=== PATIENT | female | born 1980 | race Caucasian/White ===

== ENCOUNTER 2022-08-16 18:30 | Emergency (ER) | payer OTHER, SELFPAY ==
[2022-08-16 18:38] VITALS: BP 159/94; PULSE 64; RESP 20; TEMP 36.1; O2SAT 99
--- NOTE | 2022-08-16 18:54 | ED.HA ---
HPI - Headache General Chief Complaint: Headache/Migraine Stated Complaint: Migraine Time Seen by Provider: 08/16/22 18:39 History of Present Illness HPI Narrative: This 42-year-old female is visiting from [place]. She states that she has had upper respiratory and sinus symptoms for the past week or so. Today she developed a migraine-type headache with sensitivity to light and some nausea and vomiting. She states that she has a history of migraines that were more frequent in the more distant past. She does not report any back pain or neck pain. She has not had any fevers. She does not display any neurologic deficits. Related Data Allergies Allergy/AdvReac Type Severity Reaction Status Date / Time No Known Drug Allergies Allergy Verified 08/16/22 18:38 Review of Systems Status of ROS: Reports: 10 or more systems reviewed and unremarkable except as noted in History and below Narrative: Constitutional: No fevers, no weight gain or loss. Eyes: No discharge. No vision changes. HENT: No congestion, no sore throat, no ear pain. Cardiovascular: No chest pain, no palpitations. Respiratory: No shortness of breath, no wheezes, no cough. Gastrointestinal: No abdominal pain, no diarrhea. Nausea with some vomiting related to headache. Genitourinary: No dysuria, no hematuria. Musculoskeletal: Normal range of motion. Skin: No rashes, no pruritis. Neurological: No dizziness, weakness, sensory change, speech change. Endo/Heme/Allergies: No bruising or bleeding. No polydipsia. Pysch: no suicidality, no anxiety, no insomnia. All other systems reviewed and are negative. PFSH PFSH Social History Smoking Status: Light tobacco smoker What tobacco products do you use: cigarettes Do you use any of these nicotine containing products: None Second hand tobacco smoke exposure: No How often do you have a drink containing alcohol: 4 or more times a week How many standard drinks containing alcohol do you have on a typical day: 1 or 2 How often do you have six or more drinks on one occasion: Never AUDIT-C Alcohol total score: 4 Non-prescribed substance use: marijuana (any form) service: No Exam Narrative: Exam Narrative: Constitutional: Well-developed, well-nourished, no acute distress. HEENT: Normocephalic, atraumatic. Neck: Normal range of motion. Nontender. Supple. Heart: Regular. No murmurs. Normal rate. Intact distal pulses. Lungs: Clear to auscultation. No chest discomfort. No wheezes, rhonchi, or rales. Abdomen: Normal bowel sounds. Nontender. No rebound tenderness. Genitalia: Deferred. Back: No midline tenderness. Normal range of motion. Extremities: Normal range of motion. No injury. Skin: Intact. No rash. Warm. No erythema or pallor. Neurologic: No altered sensation. No weakness. Alert and oriented. Psychiatric: No suicidality. No anxiety or depression. No insomnia. Nursing notes and vitals signs are reviewed. Const: Vital Signs, click to edit/add: Vital Signs - 24 hr 08/16/22 18:38 Temperature 96.9 F L Pulse Rate [Pulse Oximeter] 64 Respiratory Rate 20 Blood Pressure [Le ft Upper Arm] 159/94 H Pulse Oximetry 99 Oxygen Delivery Me thod Room Air Course Vital Signs Vital signs: Initial Vital Signs Temperature 96.9 F L 08/16/22 18:38 Temperature Source Temporal Artery Scan 08/16/22 18:38 Pulse Rate 64 08/16/22 18:38 Respiratory Rate 20 08/16/22 18:38 Blood Pressure 159/94 H 08/16/22 18:38 Blood Pressure Mean 115 08/16/22 18:38 Blood Pressure Position Supine 08/16/22 18:38 Pulse Oximetry 99 08/16/22 18:38 Oxygen Delivery Method 08/16/22 18:38 Vital Signs Temperature 96.9 F L 08/16/22 18:38 Pulse Rate 64 08/16/22 18:38 Respiratory Rate 20 08/16/22 18:38 Blood Pressure 159/94 H 08/16/22 18:38 Pulse Oximetry 99 08/16/22 18:38 Oxygen Delivery Method 08/16/22 18:38 Temperature 96.9 F L 08/16/22 18:38 Pulse Rate 64 08/16/22 18:38 Respiratory Rate 20 08/16/22 18:38 Blood Pressure 159/94 H 08/16/22 18:38 Pulse Oximetry 99 08/16/22 18:38 Oxygen Delivery Method 08/16/22 18:38 MDM - Headache MDM Narrative Medical decision making narrative: This patient comes in reporting symptoms typical of a migraine headache. She has a history of migraine headaches and states that this 1 is not much different. I did discuss lab and imaging options in these were declined with the plan to focus on helping her feel better. An IV was established where she received 500 mL of normal saline, Zofran 4 mg, Toradol 30 mg, Benadryl 50 mg, and Solu-Medrol 125 mg. This brought sufficient relief to her symptoms. She prefers to return home. Discharge Plan Discharge Clinical Impression: Migraine Patient Disposition: Home, Self-Care Condition: Improved Additional Instructions: Take [id number] medications as needed and indicated. Follow up with MD or return if worsening. Follow Up/Referrals: Provider,Not a Local [Primary Care Provider] - Stand Alone Forms: [employer] Info Instructions
[2022-08-16] MEDS: ONDANSETRON 2 MG/ML inj 4 MG IVP (19:26)
[2022-08-16] MEDS: KETOROLAC 30 MG/ML inj IVP (19:26)
[2022-08-16] MEDS: METHYLPREDNISOLONE SOD SUCC 62.5 MG/ML (125) 125 MG IVP (19:26)
[2022-08-16] MEDS: 0.9 % SODIUM CHLORIDE 500 ML 500 ML IV (19:27)
[2022-08-16] MEDS: diphenhydrAMINE 50 MG/ML inj IVP (19:27)
[2022-08-16 20:53] VITALS: BP 143/92; PULSE 63; RESP 16; O2SAT 98
== END 2022-08-16 20:55 | disposition home or self-care (01) ==
PROVIDERS: Emergency Provider Emergency Medicine Emergency Medical Services
DX: G43.909 Migraine, unspecified, not intractable, without status migrainosus (principal)
CPT/HCPCS: 96361; 96374; 96375; 99284; J1200; J1885; J2405; J2930; J7120